=== PATIENT | male | born 1960 | race Hispanic/Latino ===

== ENCOUNTER 2016-10-14 13:08 | Emergency (ER) | payer SELFPAY ==
--- NOTE | 2016-10-14 13:54 | RAD ---
EXAM DESCRIPTION: Abdomen Series CLINICAL HISTORY: 56 years Male, urinary retention COMPARISON: None. FINDINGS: Two views of the abdomen with an additional view of the chest demonstrates no free abdominal air. The lung bases are clear. The bowel gas pattern is normal. The bladder appears only partially distended. No unusual calculi are noted in the bony spine is unremarkable except for modest degenerative changes at the lumbosacral junction. IMPRESSION: Nonspecific abdomen two views and chest one view with no free abdominal air or obstruction or evidence of bladder distention. Electronically signed by: Herminio Burr MD 10/14/2016 1:54 PM CDT
[2016-10-14] MEDS ORDERED: TAMSULOSIN 0.4 MG CAP PO ONE (14:33)
--- NOTE | 2016-10-14 15:01 | ED.PDOC ---
History of Present Illness - General Chief Complaint: Problem Time Seen by Provider: 10/14/16 13:18 Source: patient Exam Limitations: no limitations - History of Present Illness Initial Comments: the patient is a 56-year-old male presenting to the emergency room secondary to a month of symptoms of difficulty with urination. He has apparently had prostatitis in the past. No fevers and no pain with urination. He reports that he rarely feels like he empties his bladder. He was written for Flomax by his primary care doctor a week or 2 ago but has not started it. No history of prostate cancer. He is not taking any antihistamines. No fevers. No nausea or vomiting. No flank pain. He has been off of his Synthroid. Timing/Duration: constant Severity: moderate Improving Factors: nothing Worsening Factors: nothing Associated Symptoms: denies symptoms Allergies/Adverse Reactions: Allergies NO KNOWN ALLERGY Allergy (Verified 01/06/16 17:01) Home Medications: Ambulatory Orders Citalopram Hydrobromide 20 mg PO DAILY 01/06/16 Gabapentin 600 mg PO DAILY 01/06/16 Levothyroxine Sodium 75 mcg PO DAILY 01/06/16 Lisinopril 20 mg PO DAILY 01/06/16 Meloxicam 15 mg PO DAILY 01/06/16 Propranolol HCl 20 mg PO DAILY 01/06/16 Simvastatin 40 mg PO DAILY 01/06/16 Levothyroxine Sodium [Synthroid] 75 mcg PO DAILY #30 tab 10/14/16 Tamsulosin [Flomax] 0.4 mg PO DAILY #30 cap 10/14/16 Review of Systems - Review of Systems Constitutional: States: no symptoms reported EENTM: States: no symptoms reported Respiratory: States: no symptoms reported Cardiology: States: no symptoms reported Gastrointestinal/Abdominal: States: no symptoms reported Genitourinary: States: see HPI Musculoskeletal: States: no symptoms reported Skin: States: no symptoms reported Neurological: States: no symptoms reported Endocrine: States: no symptoms reported All other Systems: No Change from Baseline Past Medical History (General) - Patient Medical History Hx Asthma: Yes Hx Cardiac Disorders: Yes - hypercholesterolemia Hx Congestive Heart Failure: No Hx Hypertension: Yes Hx Thyroid Disease: Yes - hypo Hx Diabetes: No Hx MRSA: No Surgical History: no surgical history - Vaccination History Hx Tetanus, Diphtheria Vaccination: No Hx Influenza Vaccination: No Hx Pneumococcal Vaccination: Yes - 2011 - Social History Hx Tobacco Use: No Family Medical History - Family History Father Family History: Unknown Living Status: Unknown Physical Exam - Physical Exam General Appearance: Alert, Comfortable, No apparent distress Eye Exam: bilateral normal Ears, Nose, Throat: hearing grossly normal, normal ENT inspection, normal pharynx Neck: non-tender, full range of motion, supple Respiratory: chest non-tender, lungs clear, normal breath sounds, no respiratory distress, no accessory muscle use Cardiovascular/Chest: normal peripheral pulses, no edema, tachycardia - sinus Peripheral Pulses: radial,right: 2+, radial,left: 2+, dorsalis pedis,right: 2+, dorsalis pedis,left: 2+ Gastrointestinal/Abdominal: normal bowel sounds, non tender, soft Rectal Exam: other - the prostate is enlarged but nontender. I do not feel any obvious masses. Back Exam: normal inspection, no CVA tenderness, no vertebral tenderness Extremity: normal range of motion, non-tender, normal inspection, no pedal edema , no calf tenderness, normal capillary refill Neurologic: alert, normal mood/affect, oriented x 3 Lymphatic: no adenopathy Progress - Progress Progress: 10/14/16 15:02 the patient is a 56-year-old male presenting with symptoms of difficulty with urination. Physical exam and history are consistent with BPH. Renal function appears to be normal and the PSA is normal and there does not appear to be any urinary tract infection at this time. The patient is going to be placed on Flomax which his primary care doctor had already written for and we will have the patient add saw palmetto as an outpatient supplement. He will also be written for 1 month of Synthroid 75 g daily. He needs to have this followed with his primary care doctor. Additionally he does have some constipation which may be worsening his symptoms of urinary retention. He does need to take a dose of milk of magnesia when he gets home. He needs to keep well-hydrated. He needs to follow-up with his primary care doctor in 2 weeks. He needs to return to the emergency room if he is worsening. bladder ultrasound postvoid by me showed less than 50 cc residual. - Results/Orders Results/Orders: Laboratory Tests 10/14/16 10/14/16 10/14/16 13:55 13:55 13:55 WBC RBC Hgb Hct MCV MCH MCHC RDW Plt Count MPV Absolute Neuts (auto) Absolute Lymphs (auto) Absolute Monos (auto) Absolute Eos (auto) Absolute Basos (auto) Neutrophils % Lymphocytes % Monocytes % Eosinophils % Basophils % Sodium 140 Potassium 3.6 Chloride 102 Carbon Dioxide 27 Anion Gap 14.6 BUN 12 Creatinine 1.28 BUN/Creatinine Ratio 9.4 L Random Glucose 105 Serum Osmolality 279.5 Calcium 9.6 Magnesium 1.9 Total Bilirubin 1.4 H AST 23 ALT 21 Alkaline Phosphatase 64 Serum Total Protein 8.5 H Albumin 5.4 Globulin 3.1 Albumin/Globulin Ratio 1.7 Amylase 114 H Lipase 43 Total PSA 1.15 TSH 7.44 H Urine Color Urine Appearance Urine pH Ur Specific Hecker Urine Protein Urine Glucose (UA) Urine Ketones Urine Blood Urine Nitrite Urine Bilirubin Urine Urobilinogen Ur Leukocyte Esterase Urine RBC Urine WBC Ur Epithelial Cells Urine Bacteria 10/14/16 10/14/16 13:55 14:10 WBC 9.7 RBC 5.43 Hgb 16.5 Hct 49.1 MCV 90.5 MCH 30.3 MCHC 33.5 RDW 14.2 Plt Count 253 MPV 7.3 L Absolute Neuts (auto) 7.30 H Absolute Lymphs (auto) 1.60 Absolute Monos (auto) 0.60 Absolute Eos (auto) 0.00 Absolute Basos (auto) 0.10 Neutrophils % 75.5 Lymphocytes % 16.8 L Monocytes % 6.6 Eosinophils % 0.5 L Basophils % 0.6 Sodium Potassium Chloride Carbon Dioxide Anion Gap BUN Creatinine BUN/Creatinine Ratio Random Glucose Serum Osmolality Calcium Magnesium Total Bilirubin AST ALT Alkaline Phosphatase Serum Total Protein Albumin Globulin Albumin/Globulin Ratio Amylase Lipase Total PSA TSH Urine Color Yellow Urine Appearance Clear Urine pH 6.0 Ur Specific Hecker 1.015 Urine Protein Negative Urine Glucose (UA) Negative Urine Ketones Negative Urine Blood Negative Urine Nitrite Negative Urine Bilirubin Negative Urine Urobilinogen 0.2 Ur Leukocyte Esterase Negative Urine RBC 0 Urine WBC 0 Ur Epithelial Cells 0 Urine Bacteria 0 x-ray does show constipation. Departure - Departure Clinical Impression: BPH (benign prostatic hyperplasia) Qualifiers: Prostatic enlargement morphology: unspecified morphology Lower urinary tract symptom presence: symptoms present Qualified Code(s): N40.1 - Enlarged prostate with lower urinary tract symptoms Hypothyroid Qualifiers: Hypothyroidism type: unspecified Qualified Code(s): E03.9 - Hypothyroidism, unspecified Constipation Qualifiers: Constipation type: other constipation type Qualified Code(s): K59.09 - Other constipation Disposition: Discharge to Home or Self Care Condition: Fair Departure Forms: ED Discharge - Pt. Copy, Patient Portal Self Enrollment Instructions: DI for Benign Prostatic Hyperplasia, DI for Hypothyroidism, DI for Constipation Diet: regular diet Activity: increase activity as tolerated Referrals: Alex Knight MD [Primary Care Provider] - 1-2 Weeks Prescriptions: Levothyroxine Sodium [Synthroid] 75 mcg PO DAILY #30 tab Tamsulosin [Flomax] 0.4 mg PO DAILY #30 cap Home Medications: Ambulatory Orders Citalopram Hydrobromide 20 mg PO DAILY 01/06/16 Gabapentin 600 mg PO DAILY 01/06/16 Levothyroxine Sodium 75 mcg PO DAILY 01/06/16 Lisinopril 20 mg PO DAILY 01/06/16 Meloxicam 15 mg PO DAILY 01/06/16 Propranolol HCl 20 mg PO DAILY 01/06/16 Simvastatin 40 mg PO DAILY 01/06/16 Levothyroxine Sodium [Synthroid] 75 mcg PO DAILY #30 tab 10/14/16 Tamsulosin [Flomax] 0.4 mg PO DAILY #30 cap 10/14/16 Additional Instructions: the patient is a 56-year-old male presenting with symptoms of difficulty with urination. Physical exam and history are consistent with BPH. Renal function appears to be normal and the PSA is normal and there does not appear to be any urinary tract infection at this time. The patient is going to be placed on Flomax which his primary care doctor had already written for and we will have the patient add beba roque as an outpatient supplement. He will also be written for 1 month of Synthroid 75 g daily. He needs to have this followed with his primary care doctor. Additionally he does have some constipation which may be worsening his symptoms of urinary retention. He does need to take a dose of milk of magnesia when he gets home. He needs to keep well-hydrated. He needs to follow-up with his primary care doctor in 2 weeks. He needs to return to the emergency room if he is worsening. bladder ultrasound postvoid by me showed less than 50 cc residual.
[2016-10-14 15:15] VITALS: BP 145/92; O2SAT 96
== END 2016-10-14 15:20 | disposition home or self-care (01) ==
LOC: ER 13:08
DX: N40.1 Benign prostatic hyperplasia with lower urinary tract symptoms (principal); E03.9 Hypothyroidism, unspecified; K59.09 Other constipation; E78.00 Pure hypercholesterolemia, unspecified; I10 Essential (primary) hypertension; Z79.899 Other long term (current) drug therapy
CPT/HCPCS: 36415; 74020; 80053; 81001; 82150; 83690; 83735; 84443; 85025; 87040; G0103

== ENCOUNTER → 2017-05-10 | Outpatient (CLI) | payer MEDICARE | END | disposition home or self-care (01) | LOC: YCFC.O 08:25 | DX: I10 Essential (primary) hypertension (principal); E03.9 Hypothyroidism, unspecified ==

== ENCOUNTER → 2018-10-24 | Outpatient (CLI) | payer MEDICARE | LOC: GMAE 13:22 | PROVIDERS: ATTEND Family Medicine | DX: E03.9 Hypothyroidism, unspecified (principal); I10 Essential (primary) hypertension; E78.2 Mixed hyperlipidemia; R31.0 Gross hematuria; Z12.5 Encounter for screening for malignant neoplasm of prostate | CPT/HCPCS: 84439; 84443; 84481; 84550; G0103 ==

== ENCOUNTER → 2019-05-03 | Outpatient (CLI) | payer MEDICARE | LOC: GMAE 10:40 | PROVIDERS: ATTEND Family Medicine | DX: E03.9 Hypothyroidism, unspecified (principal); E78.2 Mixed hyperlipidemia ==

== ENCOUNTER 2019-07-15 16:25 | Emergency (ER) | payer MEDICARE ==
[2019-07-15] MEDS ORDERED: traMADol 37.5MG/APAP 325MG 1 EA TAB PO ONE (16:32)
[2019-07-15] MEDS ORDERED: CLINDAMYCIN HCL CAP 150 MG CAP PO ONE (16:32)
--- NOTE | 2019-07-15 16:35 | ED.PDOC ---
History of Present Illness - General Stated Complaint: dental pain Time Seen by Provider: 07/15/19 16:31 Source: patient, RN notes reviewed Additional Information: this is patient with hypothyroidsm, high blood pressure and borderline diabetes patient present to the er with dental pain since tuesday patient has an appointment with a dentist for next week - History of Present Illness Timing/Duration: other - since tuesday EENT Location: dental Prearrival Treatment: no prearrival treatment Improving Factors: nothing Worsening Factors: nothing Associated Symptoms: facial pain/swelling Allergies/Adverse Reactions: Allergies NO KNOWN ALLERGY Allergy (Verified 07/15/19 16:38) Home Medications: Ambulatory Orders Gabapentin 600 mg PO DAILY 01/06/16 Levothyroxine Sodium 75 mcg PO DAILY 01/06/16 Simvastatin 40 mg PO DAILY 01/06/16 Clindamycin HCl [Clindamycin Hydrochloride] 300 mg PO TID #15 cap 07/15/19 traMADol 37.5MG/APAP 325MG [Ultracet] 1 ea PO .Q4H #20 tab 07/15/19 Review of Systems - Review of Systems Constitutional: Denies: chills, diaphoresis, fever, malaise, weakness EENTM: Denies: eye pain, blurred vision, tearing, ear pain, ear discharge, nose pain, nose congestion, throat pain, throat swelling, mouth pain, mouth swelling Respiratory: Denies: cough, orthopnea, short of breath, stridor, wheezing Cardiology: Denies: chest pain, edema, palpitations, syncope Gastrointestinal/Abdominal: Denies: abdominal pain, constipation, diarrhea, nausea, vomiting Genitourinary: Denies: discharge, dysuria, frequency, hematuria, pain Musculoskeletal: Denies: back pain, gout, joint pain, joint swelling, muscle pain, muscle stiffness, neck pain Skin: Denies: change in color, change in hair/nails, dryness, lesions, lumps Neurological: Denies: anxiety, depressed, emotional problems, headache, numbness, paresthesia, pre-existing deficit, seizure, tingling, tremors, weakness Endocrine: Denies: excessive sweating, flushing, intolerance to cold, intolerance to heat, increased hunger, increased thirst, increased urine, unexplained weight gain, unexplained weight loss Hematologic/Lymphatic: Denies: anemia, blood clots, easy bleeding, easy bruising, swollen glands Past Medical History (General) - Patient Medical History Hx Asthma: Yes Hx Cardiac Disorders: Yes - hypercholesterolemia Hx Congestive Heart Failure: No Hx Hypertension: Yes Hx Thyroid Disease: Yes - hypo Hx Diabetes: No Hx MRSA: No - Vaccination History Hx Tetanus, Diphtheria Vaccination: No Hx Influenza Vaccination: No Hx Pneumococcal Vaccination: Yes - 2012 - Social History Hx Tobacco Use: No Family Medical History - Family History Father Family History: Unknown Living Status: Unknown Physical Exam - Physical Exam General Appearance: Alert, Well Developed, Well Groomed, Well Hydrated, Well Nourished Eye Exam: bilateral normal Nasal Exam: normal inspection Throat Exam: normal mouth inspection, other - poor dental hygiene, gum swelling without evidence of abscess and caries Neck: non-tender Progress - Progress Progress: 07/15/19 16:40 patient will be discharge home with follow up with dentist no submental mass, no drooling and no trismus 07/15/19 16:42 patient has an appointment with a dentist this week Departure - Departure Clinical Impression: Pain, dental Disposition: Discharge to Home or Self Care Condition: Fair Instructions: DI for Dental Pain Referrals: MARLYS DIALLO MD [Primary Care Provider] - 1-2 Weeks Prescriptions: Clindamycin HCl [Clindamycin Hydrochloride] 300 mg PO TID #15 cap traMADol 37.5MG/APAP 325MG [Ultracet] 1 ea PO .Q4H #20 tab Home Medications: Ambulatory Orders Gabapentin 600 mg PO DAILY 01/06/16 Levothyroxine Sodium 75 mcg PO DAILY 01/06/16 Simvastatin 40 mg PO DAILY 01/06/16 Clindamycin HCl [Clindamycin Hydrochloride] 300 mg PO TID #15 cap 07/15/19 traMADol 37.5MG/APAP 325MG [Ultracet] 1 ea PO .Q4H #20 tab 07/15/19 Additional Instructions: follow up with dentist
[2019-07-15 17:15] VITALS: BP 151/90; TEMP 98.7; O2SAT 95
== END 2019-07-15 17:13 | disposition home or self-care (01) ==
LOC: ER 16:25
DX: K08.89 Other specified disorders of teeth and supporting structures (principal); J45.909 Unspecified asthma, uncomplicated; E78.00 Pure hypercholesterolemia, unspecified; I10 Essential (primary) hypertension; E07.9 Disorder of thyroid, unspecified; R73.03 Prediabetes; Z79.899 Other long term (current) drug therapy

== ENCOUNTER → 2019-08-08 | Outpatient (CLI) | payer MEDICARE | LOC: GMAE 10:35 | PROVIDERS: ATTEND Family Medicine | DX: E03.9 Hypothyroidism, unspecified (principal) ==

== ENCOUNTER → 2020-06-16 | Outpatient (CLI) | payer MEDICARE | LOC: GMAE 11:16 | PROVIDERS: ATTEND Family Medicine | DX: E03.9 Hypothyroidism, unspecified (principal); Z12.5 Encounter for screening for malignant neoplasm of prostate; I10 Essential (primary) hypertension; R73.01 Impaired fasting glucose; E78.2 Mixed hyperlipidemia | CPT/HCPCS: 84439; 84443; 84481; G0103 ==